=== PATIENT | male | born 1955 | race African-American/Black ===

== ENCOUNTER 2017-01-14 13:40 | Inpatient (IN) | payer BC ==
[2017-01-14 13:57] VITALS: BMI 26.6
--- NOTE | 2017-01-14 14:14 | PDOC ---
History of Present Illness - General History Source: Patient Exam Limitations: No Limitations - History of Present Illness Initial Comments: 01/14/17 16:45 Patient is a 61 year old male with a significant past medical history of HTN, Diverticulosis, GI Bleed,Anemia, Chronic low back pain,Diabetes Mellitus, who presents to the ED with complaints of chest tightness that began today at 1: 45pm. Patient reports being in post office when he suddenly felt chest tightness while reaching for his package. He reports experiencing SOB secondary to chest tightness. Patient states his last stress test was in 2007. He reports left arm pain but states it is because he received steroid shot 2 days ago. Patient reports experiencing right sided head pain behind his ear but is not sure if it is connected to his chest tightness. As per patient's , patient was on his way to PCP office when they stopped at the post office. Patient reports not taking medication this morning because he ran out of pills Denies Fevers, chills. Denies nausea, vomiting. Denies contact with sick individual, out of state travel. Denies any other symptoms. Allergies: Levofloxacin, Sulfur Social history: No smoking. No alcohol. No illicit drugs. Surgical history: Arthroscopy, rotator cuff surgery, colonoscopy 07/01/13 and 2 yrs ago PMD: Dr. dennis <Peter Dorsey - Last Filed: 01/14/17 16:45> <Elizabeth Prajapati - Last Filed: 01/14/17 18:17> - General Chief Complaint: Chest Pain Stated Complaint: CHEST PAIN Time Seen by Provider: 01/14/17 14:14 Past History <Peter Dorsey - Last Filed: 01/14/17 16:45> - Past Medical History Anemia: Yes (BLEEDING ULCER) Asthma: No Cancer: No Cardiac Disorders: No CVA: No COPD: No CHF: No Dementia: No Diabetes: Yes (2006) GI Disorders: Yes (DIVERTICULOSIS/BLEEDING ULCER 06/2013) Disorders: Yes (BPH) HTN: Yes Hypercholesterolemia: Yes Kidney Stones: Yes Liver Disease: No Seizures: No Thyroid Disease: No - Surgical History Abdominal Surgery: No Appendectomy: No Cardiac Surgery: No Cholecystectomy: No Lung Surgery: No Neurologic Surgery: No Orthopedic Surgery: Yes (RIGHT KNEE ARTHROSCOPY/RIGHT ROTATOR CUFF SURGERY) - Suicide/Smoking/Psychosocial Hx Smoking History: Never smoked Have you smoked in the past 12 months: No Hx Alcohol Use: No Drug/Substance Use Hx: No Substance Use Type: None Hx Substance Use Treatment: No <Elizabeth Prajapati - Last Filed: 01/14/17 18:17> - Past Medical History Allergies/Adverse Reactions: Allergies Allergy/AdvReac Type Severity Reaction Status Date / Time levofloxacin [From Levaquin] Allergy Severe SEVERE Verified 01/14/17 13:54 HEADACHE sulfur [From Sulfur-8] Allergy Severe Rash Verified 01/14/17 13:54 Home Medications: Ambulatory Orders Metoprolol Tartrate [Lopressor -] 50 mg PO DAILY 07/01/13 Glimepiride [Amaryl -] 4 mg PO BID 12/24/15 Linagliptin [Tradjenta] 5 mg PO DAILY 12/24/15 Metformin HCl 500 mg PO BID 12/24/15 Alfuzosin HCl [Uroxatral] 10 mg PO DAILY 01/14/17 Atorvastatin Ca [Lipitor] 40 mg PO HS 01/14/17 Carbidopa/Levodopa *Cr* 25/100 [Sinemet *Cr* 25/100 -] 1 combo PO TID 01/14/17 Pioglitazone HCl [Actos] 15 mg PO DAILY 01/14/17 Review of Systems - Review of Systems Able to Perform ROS?: Yes Comments:: 01/14/17 16:45 GENERAL/CONSTITUTIONAL: No fever or chills. No weakness. HEAD, EYES, EARS, NOSE AND THROAT: +Right sided head pain. No change in vision. No ear pain or discharge. No sore throat. CARDIOVASCULAR:+Chest pain. +SOB. RESPIRATORY: No cough, wheezing, or hemoptysis. GASTROINTESTINAL: No nausea, vomiting, diarrhea or constipation. GENITOURINARY: No dysuria, frequency, or change in urination. MUSCULOSKELETAL: No joint or muscle swelling or pain. No neck or back pain. SKIN: No rash NEUROLOGIC: No headache, vertigo, loss of consciousness, or change in strength/ sensation. ENDOCRINE: No increased thirst. No abnormal weight change. HEMATOLOGIC/LYMPHATIC: No anemia, easy bleeding, or history of blood clots. ALLERGIC/IMMUNOLOGIC: No hives or skin allergy. All Other Systems: Reviewed and Negative <Peter Dorsey - Last Filed: 01/14/17 16:45> *Physical Exam - Vital Signs Last Vital Signs Temp Pulse Resp BP Pulse Ox 97.8 F 106 H 16 124/69 100 01/14/17 13:54 01/14/17 15:35 01/14/17 15:35 01/14/17 15:35 01/14/17 15:35 - Physical Exam Comments: 01/14/17 16:45 GENERAL: +Slow speech. Awake, alert, and fully oriented, in no acute distress HEAD: No signs of trauma EYES: PERRLA, EOMI, sclera anicteric, conjunctiva clear ENT: Auricles normal inspection, hearing grossly normal, nares patent, oropharynx clear without exudates. Moist mucosa NECK: Normal ROM, supple, no lymphadenopathy, JVD, or masses LUNGS: Breath sounds equal, clear to auscultation bilaterally. No wheezes, and no crackles HEART: Regular rate and rhythm, normal S1 and S2, no murmurs, rubs or gallops ABDOMEN: Soft, nontender, normoactive bowel sounds. No guarding, no rebound. No masses EXTREMITIES: Normal range of motion, no edema. No clubbing or cyanosis. No cords, erythema, or tenderness NEUROLOGICAL: +5/5 strength in upper extremities bilaterally. +3./5 strength in left lower extremity. Cranial nerves II through XII grossly intact. Normal speech, SKIN: Warm, Dry, normal turgor, no rashes or lesions noted. <Peter Dorsey - Last Filed: 01/14/17 16:45> - Vital Signs Last Vital Signs Temp Pulse Resp BP Pulse Ox 97.8 F 113 H 19 147/79 99 01/14/17 13:54 01/14/17 13:54 01/14/17 13:54 01/14/17 13:54 01/14/17 13:54 <Elizabeth Prajapati - Last Filed: 01/14/17 18:17> Heart Score/ECG Review - History History: Moderately suspicious - Electrocardiogram EKG: Normal - Age Age: 45-65 - Risk Factors Risk Factors Heart Score: Yes Hx Hypercholesterolemia, Yes Hx Hypertension, Yes Hx Diabetes Based on the list above the patient has:: >/=3 risk factors or Hx atherosclerotic disease - Troponin Troponin: </= normal limit - Score Heart Score - Total: 4 <Elizabeth Prajapati - Last Filed: 01/14/17 18:17> ED Treatment Course - LABORATORY CBC & Chemistry Diagram: 01/14/17 14:54 01/14/17 14:54 - ADDITIONAL ORDERS Additional order review: Laboratory Results 01/14/17 14:54 Sodium 141 Potassium 4.5 Chloride 102 Carbon Dioxide 31 Anion Gap 8 BUN 16 D Creatinine 1.0 D Creat Clearance w eGFR > 60 Random Glucose 281 H D Calcium 9.2 Total Bilirubin 0.4 D AST 28 D ALT 96 H D Alkaline Phosphatase 131 H D Creatine Kinase 318 H Creatine Kinase Index 0.5 CK-MB (CK-2) 1.836 Troponin I 0.03 Total Protein 7.7 D Albumin 3.9 01/14/17 14:54 RBC 4.96 D MCV 88.7 MCHC 33.5 RDW 14.6 MPV 9.1 D Neutrophils % 79.9 D Lymphocytes % 12.5 D Monocytes % 7.3 Eosinophils % 0.0 D Basophils % 0.3 - Medications Given in the ED: ED Medications Discontinued Medications Generic Name Dose Route Start Last Admin Trade Name Freq PRN Reason Stop Dose Admin Aspirin 162 mg 01/14/17 14:51 01/14/17 14:54 Asa - PO 01/14/17 14:52 162 mg ONCE ONE Administration <Peter Dorsey - Last Filed: 01/14/17 16:45> - LABORATORY CBC & Chemistry Diagram: 01/14/17 14:54 01/14/17 14:54 <Elizabeth Prajapati - Last Filed: 01/14/17 18:17> Medical Decision Making - Medical Decision Making 01/14/17 18:11 Pt presents to the ED complaining of chest pain that began acutely today. + shortness of breath. Extensive cardiac history as described above. HEART score of 4. Will admit to medicine for observation for serial cardiac enzymes. 01/14/17 18:17 <Elizabeth Prajapait - Last Filed: 01/14/17 18:17> *DC/Admit/Observation/Transfer - Attestations Scribe Attestion: 01/14/17 16:47 Documentation prepared by Peter Dorsey, acting as medical art therapist for Elizabeth Prajapati MD, /DO. <Peter Dorsey - Last Filed: 01/14/17 16:45> - Discharge Dispostion Admit: Yes <Elizabeth Prajapati - Last Filed: 01/14/17 18:17> Diagnosis at time of Disposition: Chest pain Qualifiers: Chest pain type: other chest pain Qualified Code(s): R07.89 - Other chest pain - Discharge Dispostion Condition at time of disposition: Good - Referrals Referrals: Evelio Dennis MD [Primary Care Provider] -
[2017-01-14] MEDS ORDERED: ASPIRIN 81 MG CHEWABLE TABLETS PO ONE (14:51)
[2017-01-14] MEDS ORDERED: ASPIRIN 81 MG CHEWABLE TABLETS ONE (14:56)
[2017-01-14 15:38] LABS: ALBUMIN 3.9 g/dl (3.4-5.0); ANION GAP 8 (8-16); CALCIUM 9.2 mg/dL (8.5-10.1); CO2 31 mmol/L (21-32); GLUCOSE,RANDOM 281 mg/dL (74-106); SGOT/AST 28 U/L (15-37); SGPT/ALT 96 U/L (12-78)
[2017-01-14 15:41] LABS: ALK PHOS 131 U/L (45-117); BILIRUBIN,TOTAL 0.4 mg/dL (0.2-1.0); CPK 318 IU/L (39-308); TOT PROT 7.7 g/dl (6.4-8.2); TROPONIN I 0.03 ng/ml (0.00-0.05)
[2017-01-14 15:49] LABS: BASOPHIL 0.3 % (0-2.0); MCH 29.7 pg (25.7-33.7); MCHC 33.5 g/dl (32.0-35.9); MEAN CELL VOLUME 88.7 fl (80-96); MEAN PLT VOLUME 9.1 fl (7.5-11.1); NEUTROPHILS 79.9 % (42.8-82.8); PLATELET COUNT 172 K/MM3 (134-434); RDW 14.6 % (11.9-15.9); WHITE BLOOD COUNT 8.4 K/mm3 (4.0-10.0)
--- NOTE | 2017-01-14 19:09 | HP ---
CHIEF COMPLAINT: Chest pain PCP: Dr. Dennis HISTORY OF PRESENT ILLNESS: 61 year-old male with a PMH significant for HTN, HLD, Parkinson's disease, NIDDM , diverticulosis, h/o lower GI bleed, anemia, renal calculi, and spinal stenosis s/p L3-L4, L4-L5 laminectomy. Presents with a complaint of chest tightness with associated SOB. Patient was in post office and lifted a heavy box from one counter to another, a distance of a few feet. He felt mid sternal chest pressure and became SOB. The symptoms lasted about two hours and have not recurred. Patient had one previous episode of chest pressure and SOB at the end of November after walking a distance of about a quarter mile. The patient's last stress test was in 2007 and was normal. He has not had a cardiac workup since then. Patient denies palpitations, PND, orthopnea, near syncope, lower extremity edema. He denies fever, sweats, chills. ER course was notable for: (1) First troponin negative (2) CXR unremarkable Recent Travel: No PAST MEDICAL HISTORY: Hypertension Hyperlipidemia Parkinson's Disease NIDDM Diverticulosis h/o GI bleed (06/2013) Anemia Renal calculi Spinal stenosis PAST SURGICAL HISTORY: L3-L4, L4-L5 laminectomy (12/2015) Social History: Smoking: no Alcohol: no Drugs: no Family History: Mother ESRD; father age 52 of massive MT; uncle from complications of CABG Allergies levofloxacin [From Levaquin] Allergy (Severe, Verified 01/14/17 13:54) SEVERE HEADACHE sulfur [From Sulfur-8] Allergy (Severe, Verified 01/14/17 13:54) Rash HOME MEDICATIONS: Home Medications Medication Instructions Recorded Metoprolol Tartrate [Lopressor -] 50 mg PO DAILY 07/01/13 Glimepiride [Amaryl -] 4 mg PO BID 12/24/15 Linagliptin [Tradjenta] 5 mg PO DAILY 12/24/15 Metformin HCl 500 mg PO BID 12/24/15 Alfuzosin HCl [Uroxatral] 10 mg PO DAILY 01/14/17 Atorvastatin Ca [Lipitor] 40 mg PO HS 01/14/17 Carbidopa/Levodopa *Cr* 25/100 1 combo PO TID 01/14/17 [Sinemet *Cr* 25/100 -] Pioglitazone HCl [Actos] 15 mg PO DAILY 01/14/17 REVIEW OF SYSTEMS CONSTITUTIONAL: Absent: fever, chills, diaphoresis, generalized weakness, malaise, loss of appetite, weight change HEENT: Absent: rhinorrhea, nasal congestion, throat pain, throat swelling, difficulty swallowing, mouth swelling, ear pain, eye pain, visual changes CARDIOVASCULAR: Present: mid sternal chest pressure with SOB Absent: syncope, palpitations, irregular heart rate, lightheadedness, peripheral edema RESPIRATORY: Absent: cough, shortness of breath, dyspnea with exertion, orthopnea, wheezing, stridor, hemoptysis GASTROINTESTINAL: Absent: abdominal pain, abdominal distension, nausea, vomiting, diarrhea, constipation, melena, hematochezia GENITOURINARY: Absent: dysuria, frequency, urgency, hesitancy, hematuria, flank pain, genital pain MUSCULOSKELETAL: Absent: myalgia, arthralgia, joint swelling, back pain, neck pain SKIN: Absent: rash, itching, pallor HEMATOLOGIC/IMMUNOLOGIC: Absent: easy bleeding, easy bruising, lymphadenopathy, frequent infections ENDOCRINE: Absent: unexplained weight gain, unexplained weight loss, heat intolerance, cold intolerance NEUROLOGIC: Absent: headache, focal weakness or paresthesias, dizziness, unsteady gait, seizure, mental status changes, bladder or bowel incontinence PSYCHIATRIC: Absent: anxiety, depression, suicidal or homicidal ideation, hallucinations. PHYSICAL EXAMINATION Vital Signs - 24 hr 01/14/17 01/14/17 01/14/17 13:54 14:46 15:35 Temperature 97.8 F Pulse Rate 113 H 74 Pulse Rate [ 106 H Left Apical] Respiratory 19 16 Rate Blood Pressure 147/79 Blood Pressure 124/69 [Left Arm] O2 Sat by Pulse 99 98 100 Oximetry (%) 01/14/17 17:23 Temperature 98.4 F Pulse Rate Pulse Rate [ 103 H Left Apical] Respiratory 16 Rate Blood Pressure Blood Pressure 123/67 [Left Arm] O2 Sat by Pulse 96 Oximetry (%) GENERAL: Awake, alert, and fully oriented, in no acute distress. HEAD: Normal with no signs of trauma. EYES: Pupils equal, round and reactive to light, extraocular movements intact, sclera anicteric, conjunctiva clear. No lid lag. EARS, NOSE, THROAT: Ears normal, nares patent, oropharynx clear without exudates. Moist mucous membranes. NECK: Normal range of motion, supple without lymphadenopathy, JVD, or masses. LUNGS: Breath sounds equal, clear to auscultation bilaterally. No wheezes, and no crackles. No accessory muscle use. HEART: Regular rate and rhythm, normal S1 and S2, slight murmur best heard over aortic area ABDOMEN: Soft, nontender, not distended, normoactive bowel sounds, no guarding, no rebound, no masses. No hepatomegaly or splenomegaly. MUSCULOSKELETAL: Normal range of motion at all joints. No bony deformities or tenderness. No CVA tenderness. UPPER EXTREMITIES: 2+ pulses, warm, well-perfused. No cyanosis. No clubbing. No peripheral edema. LOWER EXTREMITIES: 2+ pulses, warm, well-perfused. No calf tenderness. No peripheral edema. NEUROLOGICAL: Cranial nerves II-XII intact. Normal speech. Normal gait. PSYCHIATRIC: Cooperative. Good eye contact. Appropriate mood and affect. SKIN: Warm, dry, normal turgor Laboratory Results - last 24 hr 01/14/17 01/14/17 14:54 14:54 WBC 8.4 D RBC 4.96 D Hgb 14.8 D Hct 44.0 D MCV 88.7 MCH 29.7 MCHC 33.5 RDW 14.6 Plt Count 172 D MPV 9.1 D Neutrophils % 79.9 D Lymphocytes % 12.5 D Monocytes % 7.3 Eosinophils % 0.0 D Basophils % 0.3 Sodium 141 Potassium 4.5 Chloride 102 Carbon Dioxide 31 Anion Gap 8 BUN 16 D Creatinine 1.0 D Creat Clearance w eGFR > 60 Random Glucose 281 H D Calcium 9.2 Total Bilirubin 0.4 D AST 28 D ALT 96 H D Alkaline Phosphatase 131 H D Creatine Kinase 318 H Creatine Kinase Index 0.5 CK-MB (CK-2) 1.836 Troponin I 0.03 Total Protein 7.7 D Albumin 3.9 ASSESSMENT/PLAN 61 year-old male with a PMH significant for HTN, Parkinson's disease, NIDDM, h/ o GI bleed, renal calculi, anemia, and spinal stenosis s/p L3-L4, L4-L5 laminectomy (12/2015). Placed on observation for chest pain. Chest pain --r/o ACS: first troponin negative, two pending; CXR unremarkable; ECG not suggestive of acute ischemic event; echo and EST ordered; cardiology consult requested; telemetry monitoring; continue ASA, metoprolol --r/o PE: Wells score 1.5, low risk; very low suspicion for PE, no further workup for now Hypertension --continue metoprolol Parkinson's Disease --continue carbidopa/levodopa NIDDM --Novolog sliding scale coverage h/o lower GI bleed Diverticulosis --will start protonix since on ASA Renal calculi --no acute issues Anemia --h/h stable Lumbar spinal stenosis s/p laminectomy --no acute issues FEN Fluids: PO intake adequate Electrolytes: replete as indicated Nutrition: low sodium diabetic DVT prophylaxis: subq heparin, oob, ambulation Dispo: continues to require observation. Full code. Visit type - Emergency Visit Emergency Visit: Yes ED Registration Date: 01/14/17 Care time: The patient presented to the Emergency Department on the above date and was hospitalized for further evaluation of their emergent condition. - New Patient This patient is new to me today: Yes Date on this admission: 01/14/17 - Critical Care Critical Care patient: No
[2017-01-14] MEDS: PANTOPRAZOLE 40 MG TABLET (FP) PO SCH (21:13)
[2017-01-14] MEDS: ATORVASTATIN CA 40 MG TABLET (FP) PO SCH (21:13)
[2017-01-14] MEDS: INSULIN SLIDING SCALE (NOVOLOG) 1 VIAL SQ SCH (21:22)
--- NOTE | 2017-01-15 00:37 | HOSP ---
Subjective - Review of Symptoms Events since last encounter: Called by RN and notified of troponin of 0.51. Pulmonary: No: Dyspnea Cardiovascular: No: Chest Pain Physical Examination Vital Signs: Vital Signs Temperature 98.8 F 01/14/17 20:06 Pulse Rate 78 01/14/17 20:06 Respiratory Rate 16 01/14/17 20:06 Blood Pressure 140/88 01/14/17 20:06 O2 Sat by Pulse Oximetry (%) 96 01/14/17 20:06 Constitutional: Yes: No Distress, Calm Cardiovascular: Yes: Regular Rate and Rhythm. No: JVD, Gallop, Murmur Respiratory: Yes: Regular, CTA Bilaterally Gastrointestinal: Yes: Normal Bowel Sounds ...Rectal Exam: Yes: Guaiac Negative, Sphincter Tone Normal Labs: CBC, BMP 01/14/17 14:54 01/14/17 14:54 Hospitalist Encounter Assessment: A: 61-year-old man with history of IDDM, hypertension, lower GI bleed now with new positive troponin. P: I'll perform guaiac testing on this patient. If negative I will initiate heparin drip. I will collect a stat EKG. I will reevaluate the patient after all testing was completed. Guaiac (-). Given benefits of heperin vs risks of GI bleed, I will start the patient on heperin gtt. EKG- No significant change from previous EKG. Patient remains chest pain free at this time. I will continue to monitor.
[2017-01-15] MEDS ORDERED: HEPARIN NA (PORCINE) 5,000 UNITS/ML 1ML VIAL IVPUSH PRN ×2 (01:30)
[2017-01-15] MEDS: HEPARIN - 25,000 UNIT in SODIUM CHLORIDE 495 ML IV SCH ×3 (03:35→20:20)
[2017-01-15] MEDS ORDERED: CLOPIDOGREL BISULFATE 300 MG TABLET PO ONE ×2 (04:07)
[2017-01-15] MEDS: INSULIN SLIDING SCALE (NOVOLOG) 1 VIAL SQ SCH ×4 (06:23→21:47)
[2017-01-15 07:22] LABS: BASOPHIL 0.5 % (0-2.0); EOSINOPHIL 0.3 % (0-4.5); MCH 29.5 pg (25.7-33.7); MCHC 33.3 g/dl (32.0-35.9); MEAN CELL VOLUME 88.8 fl (80-96); MEAN PLT VOLUME 8.8 fl (7.5-11.1); NEUTROPHILS 70.3 % (42.8-82.8); PLATELET COUNT 167 K/MM3 (134-434); RDW 14.5 % (11.9-15.9); WHITE BLOOD COUNT 8.2 K/mm3 (4.0-10.0)
[2017-01-15 07:27] LABS: ALBUMIN 3.6 g/dl (3.4-5.0); ANION GAP 6 (8-16); CALCIUM 8.6 mg/dL (8.5-10.1); CO2 29 mmol/L (21-32); GLUCOSE,RANDOM 218 mg/dL (74-106)
[2017-01-15 07:40] LABS: ALK PHOS 121 U/L (45-117); BILIRUBIN,TOTAL 0.7 mg/dL (0.2-1.0); CREATININE 0.8 mg/dL (0.7-1.3); SGOT/AST 23 U/L (15-37); SGPT/ALT 41 U/L (12-78); THYROID STIMULATING HORMONE 1.59 uIU/ml (0.358-3.74)
[2017-01-15] MEDS: ASPIRIN COATED 81 MG TABLET.EC PO SCH (09:12)
[2017-01-15] MEDS: TAMSULOSIN HCL 0.4 MG CAP.ER.24H (FP) PO SCH (09:12)
[2017-01-15] MEDS: METOPROLOL TARTRATE 50 MG TABLET (FP) PO SCH (09:12)
[2017-01-15] MEDS: PANTOPRAZOLE 40 MG TABLET (FP) PO SCH (09:12)
[2017-01-15 09:58] LABS: CPK 230 IU/L (39-308)
[2017-01-15] MEDS ORDERED: PATIENT'S OWN MEDICATION (NON-FORMULARY) (Alfuzosin Hcl [Uroxatral] 10 MG) PO SCH (10:00)
[2017-01-15 10:31] LABS: TROPONIN I 0.73 ng/ml (0.00-0.05)
--- NOTE | 2017-01-15 13:03 | PN ---
Physical Exam: SUBJECTIVE: Patient seen and examined at bedside. States he feels better, chest pain has not recurred. and sister present. 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 Answered all questions. OBJECTIVE: Vital Signs Period Temp Pulse Resp BP Sys/Sol Pulse Ox Last 24 Hr 97.8 F-98.8 F 73-113 16-19 123-147/67-88 96-100 GENERAL: The patient is awake, alert, and fully oriented, in no acute distress. LUNGS: Breath sounds equal, clear to auscultation bilaterally, no wheezes, no crackles, no accessory muscle use. HEART: Regular rate and rhythm, S1, S2 without murmur, rub or gallop. ABDOMEN: Soft, nontender, nondistended, normoactive bowel sounds, no guarding, no rebound EXTREMITIES: 2+ pulses, warm, well-perfused, no edema. NEUROLOGICAL: Cranial nerves II through XII grossly intact. Normal speech, gait not observed. Laboratory Results - last 24 hr 01/14/17 01/14/17 01/14/17 14:54 14:54 21:19 WBC 8.4 D RBC 4.96 D Hgb 14.8 D Hct 44.0 D MCV 88.7 MCH 29.7 MCHC 33.5 RDW 14.6 Plt Count 172 D MPV 9.1 D Neutrophils % 79.9 D Lymphocytes % 12.5 D Monocytes % 7.3 Eosinophils % 0.0 D Basophils % 0.3 PTT (Actin FS) Sodium 141 Potassium 4.5 Chloride 102 Carbon Dioxide 31 Anion Gap 8 BUN 16 D Creatinine 1.0 D Creat Clearance w eGFR > 60 POC Glucometer 189 Random Glucose 281 H D Hemoglobin A1c % Calcium 9.2 Magnesium Total Bilirubin 0.4 D AST 28 D ALT 96 H D Alkaline Phosphatase 131 H D Creatine Kinase 318 H Creatine Kinase Index 0.5 CK-MB (CK-2) 1.836 Troponin I 0.03 Total Protein 7.7 D Albumin 3.9 TSH Stool Occult Blood 01/14/17 01/15/17 01/15/17 21:45 00:25 02:15 WBC RBC Hgb Hct MCV MCH MCHC RDW Plt Count MPV Neutrophils % Lymphocytes % Monocytes % Eosinophils % Basophils % PTT (Actin FS) Sodium Potassium Chloride Carbon Dioxide Anion Gap BUN Creatinine Creat Clearance w eGFR POC Glucometer Random Glucose Hemoglobin A1c % Calcium Magnesium Total Bilirubin AST ALT Alkaline Phosphatase Creatine Kinase Creatine Kinase Index CK-MB (CK-2) Troponin I 0.51 H D 0.81 H* D Total Protein Albumin TSH Stool Occult Blood Negative 01/15/17 01/15/17 01/15/17 02:57 05:05 05:05 WBC 8.2 RBC 4.74 Hgb 14.0 Hct 42.1 MCV 88.8 MCH 29.5 MCHC 33.3 RDW 14.5 Plt Count 167 MPV 8.8 Neutrophils % 70.3 Lymphocytes % 22.3 D Monocytes % 6.6 Eosinophils % 0.3 D Basophils % 0.5 PTT (Actin FS) Sodium 138 Potassium 4.2 Chloride 103 Carbon Dioxide 29 Anion Gap 6 L BUN 16 Creatinine 0.8 Creat Clearance w eGFR > 60 POC Glucometer 162 Random Glucose 218 H D Hemoglobin A1c % Calcium 8.6 Magnesium 2.0 D Total Bilirubin 0.7 D AST 23 ALT 41 D Alkaline Phosphatase 121 H Creatine Kinase 230 Creatine Kinase Index 1.4 CK-MB (CK-2) 3.340 Troponin I 0.73 H* Total Protein 7.0 Albumin 3.6 TSH 1.59 Stool Occult Blood 01/15/17 01/15/17 01/15/17 05:05 05:05 06:05 WBC RBC Hgb Hct MCV MCH MCHC RDW Plt Count MPV Neutrophils % Lymphocytes % Monocytes % Eosinophils % Basophils % PTT (Actin FS) Sodium Potassium Chloride Carbon Dioxide Anion Gap BUN Creatinine Creat Clearance w eGFR POC Glucometer 211 Random Glucose Hemoglobin A1c % 7.0 H Calcium Magnesium Total Bilirubin AST ALT Alkaline Phosphatase Creatine Kinase Cancelled Creatine Kinase Index CK-MB (CK-2) Troponin I Cancelled Total Protein Albumin TSH Stool Occult Blood 01/15/17 01/15/17 09:40 11:17 WBC RBC Hgb Hct MCV MCH MCHC RDW Plt Count MPV Neutrophils % Lymphocytes % Monocytes % Eosinophils % Basophils % PTT (Actin FS) 39.0 H Sodium Potassium Chloride Carbon Dioxide Anion Gap BUN Creatinine Creat Clearance w eGFR POC Glucometer 228 Random Glucose Hemoglobin A1c % Calcium Magnesium Total Bilirubin AST ALT Alkaline Phosphatase Creatine Kinase Creatine Kinase Index CK-MB (CK-2) Troponin I Total Protein Albumin TSH Stool Occult Blood Active Medications Generic Name Dose Route Start Last Admin Trade Name Freq PRN Reason Stop Dose Admin Aspirin 81 mg 01/15/17 10:00 01/15/17 09:12 Ecotrin - PO 81 mg DAILY LYNDON Administration Atorvastatin Calcium 40 mg 01/14/17 22:00 01/14/17 21:13 Lipitor - PO 40 mg HS LYNDON Administration Carbidopa/Levodopa 1 combo 01/14/17 22:00 01/15/17 06:24 Sinemet *Cr* 25/100 - PO 1 combo TID LYNDON Administration Heparin Sodium (Porcine) 1,000 unit 01/15/17 01:30 Heparin - IVPUSH PRN PRN Heparin Heparin Sodium (Porcine) 5,000 unit 01/15/17 01:30 01/15/17 11:14 Heparin - IVPUSH 5,000 unit PRN PRN Administration Heparin Heparin Sodium (Porcine) 25, 500 mls @ 20 mls/hr 01/15/17 01:30 01/15/17 11: 14 000 unit/ Sodium Chloride IV 1,150 unit/hr TITR LYNDON 23 mls/hr Protocol Administration 1,000 UNIT/HR Insulin Aspart 1 vial 01/14/17 22:00 01/15/17 11:18 Novolog Vial Sliding Scale - SQ 4 units ACHS LYNDON Administration Protocol Metoprolol Tartrate 50 mg 01/15/17 10:00 01/15/17 09:12 Lopressor - PO 50 mg DAILY LYNDON Administration Pantoprazole Sodium 40 mg 01/14/17 20:15 01/15/17 09:12 Protonix - PO 40 mg DAILY LYNDON Administration Tamsulosin HCl 0.4 mg 01/15/17 08:30 01/15/17 09:12 Flomax - PO 0.4 mg DAILY@0830 LYNDON Administration ASSESSMENT/PLAN 61 year-old male with a PMH significant for HTN, Parkinson's disease, NIDDM, h/ o GI bleed, renal calculi, anemia, and spinal stenosis s/p L3-L4, L4-L5 laminectomy (12/2015). Placed on observation for chest pain. NSTEMI --Troponins 0.03-->0.51-->0.81-->0.73 --serial ECGs without ischemic changes --ASA, Plavix given overnight; started on heparin drip --echo pending --continue ASA, Plavix, metoprolol, atorvastatin Hypertension --continue metoprolol Parkinson's Disease --continue carbidopa/levodopa NIDDM --Novolog sliding scale coverage h/o lower GI bleed Diverticulosis --continue protonix Renal calculi --no acute issues Anemia --h/h stable Lumbar spinal stenosis s/p laminectomy --no acute issues FEN Fluids: PO intake adequate Electrolytes: replete as indicated Nutrition: low sodium diabetic DVT prophylaxis: subq heparin, oob, ambulation Dispo: continues to require inpatient care. Full code. Visit type - Emergency Visit Emergency Visit: Yes ED Registration Date: 01/14/17 Care time: The patient presented to the Emergency Department on the above date and was hospitalized for further evaluation of their emergent condition. - New Patient This patient is new to me today: No - Critical Care Critical Care patient: No
--- NOTE | 2017-01-15 16:57 | CON.CARD ---
Consult Consult Specialty:: Cardiology Referred by:: Ms. Jerad NP - History of Present Illness Chief Complaint: Chest tightness with evidence of NSTEMI. History of Present Illness: 61 year-old man with a PMHx of HTN, NIDDM, HLD, Parkinson's disease, diverticulosis, lower GI bleed, anemia, renal calculi, and spinal stenosis s/p L3-L4, L4-L5 laminectomy admitted 01/15/2017 with chest tightness with associated SOB. Patient developed chest tightness with SOB after lifted a heavy box from one counter to another. His symptoms lasted about two hours resolved after receiving Aspirin. He had similar episode of chest pressure and SOB at the end of November 2016 after walking a distance of about a quarter mile. He did not seek medical attention at that time. He was found to have elevated troponin after admission. ECG did not show acute ST-T changes. He has been stable since admission without recurrent chest discomfort. - History Source History Provided By: Patient Limitations to Obtaining History: No Limitations - Past Medical History Cardio/Vascular: Yes: HTN. No: AFIB, Aneurysm, Aortic Insufficiency, Aortic Stenosis, CAD, CHF, Deep Vein Thrombosis, Hyperlipdemia, MA, Mitral Insufficiency, Mitral Stenosis, Murmur, Pulmonary Hypertension, Other Gastrointestinal: Yes: Diverticulosis, GI Bleed. No: Cancer, Constipation, Crohn's Disease, Diverticulitis, Esophageal Varices, Gastritis, GERD, Hemorrhoids, Hiatal Hernia, Inflamatory Bowel Disease, Irritable Bowel Disease, Pancreatitis, Peptic Ulcer Disease, Ulcerative Colitis, Other Renal/: Yes: Renal Calculi. No: Renal Failure, Renal Inusuff, BPH, Cancer, Hematuria, Hemodialysis, Neurogenic Bladder, UTI, Other Musculoskeletal: Yes: Chronic low back pain. No: Bursitis, Hemiparesis, Hemiplegia, Osteoarthritis, Paraplegia, Other Endocrine: Yes: Diabetes Mellitus. No: Torres's Disease, Ralph's Disease, Diabetes Insipidus, Hyperparathyroidism, Hyperthyroidism, Hypothyroidism, Osteopenia, SIADH, Other - Past Surgical History Past Surgical History: Yes: Arthrosocopy - Alcohol/Substance Use Hx Alcohol Use: No History of Substance Use: reports: None - Smoking History Smoking history: Never smoked Have you smoked in the past 12 months: No - Social History Usual Living Arrangement: With Spouse History of Recent Travel: No Home Medications - Allergies Allergies/Adverse Reactions: Allergies Allergy/AdvReac Type Severity Reaction Status Date / Time levofloxacin [From Levaquin] Allergy Severe SEVERE Verified 01/14/17 13:54 HEADACHE sulfur [From Sulfur-8] Allergy Severe Rash Verified 01/14/17 13:54 - Home Medications Home Medications: Ambulatory Orders Metoprolol Tartrate [Lopressor -] 50 mg PO DAILY 07/01/13 Glimepiride [Amaryl -] 4 mg PO BID 12/24/15 Linagliptin [Tradjenta] 5 mg PO DAILY 12/24/15 Metformin HCl 500 mg PO BID 12/24/15 Alfuzosin HCl [Uroxatral] 10 mg PO DAILY 01/14/17 Atorvastatin Ca [Lipitor] 40 mg PO HS 01/14/17 Carbidopa/Levodopa *Cr* 25/100 [Sinemet *Cr* 25/100 -] 1 combo PO TID 01/14/17 Pioglitazone HCl [Actos] 15 mg PO DAILY 01/14/17 Review of Systems - Review of Systems Constitutional: reports: No Symptoms Eyes: reports: No Symptoms HENT: reports: No Symptoms Neck: reports: No Symptoms Cardiovascular: reports: Chest Pain, Shortness of Breath Respiratory: reports: Exercise Intolerance, SOB Gastrointestinal: reports: No Symptoms Genitourinary: reports: No Symptoms Musculoskeletal: reports: Back Pain Integumentary: reports: No Symptoms Neurological: reports: Other (Parkinson's disease.) Hematology/Lymphatic: reports: No Symptoms Psychiatric: reports: No Symptoms - Risk Factors Known Risk Factors: Yes: Diabetes Mellitus, Hypercholesterolemia, Hypertension Vital Signs: Vital Signs Temperature 98.8 F 01/15/17 14:00 Pulse Rate 80 01/15/17 14:00 Respiratory Rate 20 01/15/17 14:00 Blood Pressure 114/67 01/15/17 14:00 O2 Sat by Pulse Oximetry (%) 98 01/15/17 09:00 Constitutional: Yes: Well Nourished, No Distress, Calm Eyes: Yes: WNL, Conjunctiva Clear, EOM Intact, PERRL, Sclera Icterus HENT: Yes: Atraumatic, Normocephalic Neck: Yes: Supple, Trachea Midline Respiratory: Yes: Regular, CTA Bilaterally Gastrointestinal: Yes: Normal Bowel Sounds, Soft, Abdomen, Obese Cardiovascular: Yes: Regular Rate and Rhythm JVD: No Carotid Bruit: No PMI: Non-Displaced Heart Sounds: Yes: S1, S2 Musculoskeletal: Yes: Back Pain Edema: No Peripheral Pulses WNL: Yes Integumentary: Yes: WNL Neurological: Yes: WNL, Alert, Oriented ...Motor Strength: WNL - Other Data Labs, Other Data: CBC, BMP 01/15/17 05:05 01/15/17 05:05 Troponin, BNP 01/14/17 01/15/17 01/15/17 21:45 02:15 05:05 Troponin I 0.51 H D 0.81 H* D 0.73 H* 01/15/17 01/15/17 05:05 13:15 Troponin I Cancelled 0.46 H D Troponin, BNP 01/14/17 01/15/17 01/15/17 21:45 02:15 05:05 Troponin I 0.51 H D 0.81 H* D 0.73 H* 01/15/17 01/15/17 05:05 13:15 Troponin I Cancelled 0.46 H D Normal sinus rhythm. No ST-T abnormalities. Imaging - Results Chest X-ray: Image Reviewed EKG: Image Reviewed (Normal sinus rhythm. No ST-T abnormalities.) Assessment/Plan 61 year-old man with a PMHx of HTN, NIDDM, HLD, Parkinson's disease, diverticulosis, lower GI bleed, anemia, renal calculi, and spinal stenosis s/p L3-L4, L4-L5 laminectomy admitted 01/15/2017 with chest tightness with associated SOB. He was found to have elevated troponin after admission. ECG did not show acute ST-T changes. He has been stable since admission without recurrent chest discomfort. NSTEMI: The patient has multiple risk factors of CAD admitted with atypical angina with evidence of NSTEMI. He has been stable without recurrent angina. Troponin is trending down now. Cardiac cath with possible PCI will be scheduled for 01/18/2017 at [facility]. Continue IV Heparin to keep aPTT at 50-70. Continue aspirin, metoprolol and atorvastatin. We will follow the patient with you.
[2017-01-15] MEDS: ATORVASTATIN CA 40 MG TABLET (FP) PO SCH (21:46)
[2017-01-16] MEDS: INSULIN SLIDING SCALE (NOVOLOG) 1 VIAL SQ SCH ×4 (06:51→22:18)
[2017-01-16] MEDS: HEPARIN - 25,000 UNIT in SODIUM CHLORIDE 495 ML IV SCH (06:52)
--- NOTE | 2017-01-16 07:50 | PN ---
Physical Exam: SUBJECTIVE: Patient seen and examined. Episode of chest pressure at 4:00am. Given sublinqual nitro with relief after about 15 minutes. Telemetry unremarkable at that time. OBJECTIVE: Vital Signs Period Temp Pulse Resp BP Sys/Sol Pulse Ox Last 24 Hr 98 F-98.8 F 70-85 18-20 114-140/67-86 96-98 GENERAL: The patient is awake, alert, and fully oriented, in no acute distress. LUNGS: Breath sounds equal, clear to auscultation bilaterally, no wheezes, no crackles, no accessory muscle use. HEART: Regular rate and rhythm, S1, S2 without murmur, rub or gallop. ABDOMEN: Soft, nontender, nondistended, normoactive bowel sounds, no guarding, no rebound EXTREMITIES: 2+ pulses, warm, well-perfused, no edema. NEUROLOGICAL: Cranial nerves II through XII grossly intact. Normal speech, gait not observed. Laboratory Results - last 24 hr 01/15/17 01/15/17 01/15/17 05:05 05:05 05:05 PTT (Actin FS) Sodium 138 Potassium 4.2 Chloride 103 Carbon Dioxide 29 Anion Gap 6 L BUN 16 Creatinine 0.8 Creat Clearance w eGFR > 60 POC Glucometer Random Glucose 218 H D Hemoglobin A1c % 7.0 H Calcium 8.6 Magnesium 2.0 D Total Bilirubin 0.7 D AST 23 ALT 41 D Alkaline Phosphatase 121 H Creatine Kinase 230 Cancelled Creatine Kinase Index 1.4 CK-MB (CK-2) 3.340 Troponin I 0.73 H* Cancelled Total Protein 7.0 Albumin 3.6 TSH 1.59 01/15/17 01/15/17 01/15/17 09:40 11:17 13:15 PTT (Actin FS) 39.0 H Sodium Potassium Chloride Carbon Dioxide Anion Gap BUN Creatinine Creat Clearance w eGFR POC Glucometer 228 Random Glucose Hemoglobin A1c % Calcium Magnesium Total Bilirubin AST ALT Alkaline Phosphatase Creatine Kinase Creatine Kinase Index CK-MB (CK-2) Troponin I 0.46 H D Total Protein Albumin TSH 01/15/17 01/15/17 01/15/17 16:46 17:03 19:00 PTT (Actin FS) 194.4 H D 129.6 H D Sodium Potassium Chloride Carbon Dioxide Anion Gap BUN Creatinine Creat Clearance w eGFR POC Glucometer 165 Random Glucose Hemoglobin A1c % Calcium Magnesium Total Bilirubin AST ALT Alkaline Phosphatase Creatine Kinase Creatine Kinase Index CK-MB (CK-2) Troponin I Total Protein Albumin TSH 01/15/17 01/16/17 01/16/17 21:45 04:00 06:49 PTT (Actin FS) 174.6 H D Sodium Potassium Chloride Carbon Dioxide Anion Gap BUN Creatinine Creat Clearance w eGFR POC Glucometer 192 134 Random Glucose Hemoglobin A1c % Calcium Magnesium Total Bilirubin AST ALT Alkaline Phosphatase Creatine Kinase Creatine Kinase Index CK-MB (CK-2) Troponin I Total Protein Albumin TSH Active Medications Generic Name Dose Route Start Last Admin Trade Name Freq PRN Reason Stop Dose Admin Aspirin 81 mg 01/15/17 10:00 01/15/17 09:12 Ecotrin - PO 81 mg DAILY [facility] Administration Atorvastatin Calcium 40 mg 01/14/17 22:00 01/15/17 21:46 Lipitor - PO 40 mg HS [facility] Administration Carbidopa/Levodopa 1 combo 01/14/17 22:00 01/16/17 06:51 Sinemet *Cr* 25/100 - PO 1 combo TID [facility] Administration Clopidogrel Bisulfate 75 mg 01/16/17 10:00 Plavix - PO DAILY [facility] Heparin Sodium (Porcine) 1,000 unit 01/15/17 01:30 Heparin - IVPUSH PRN PRN Heparin Heparin Sodium (Porcine) 5,000 unit 01/15/17 01:30 01/15/17 11:14 Heparin - IVPUSH 5,000 unit PRN PRN Administration Heparin Heparin Sodium (Porcine) 25, 500 mls @ 20 mls/hr 01/15/17 01:30 01/16/17 06: 52 000 unit/ Sodium Chloride IV 700 unit/hr TITR [facility] 14 mls/hr Protocol Administration 1,000 UNIT/HR Insulin Aspart 1 vial 01/14/17 22:00 01/16/17 06:51 Novolog Vial Sliding Scale - SQ Not Given ACHS [facility] Protocol Metoprolol Tartrate 50 mg 01/15/17 10:00 01/15/17 09:12 Lopressor - PO 50 mg DAILY [facility] Administration Pantoprazole Sodium 40 mg 01/14/17 20:15 01/15/17 09:12 Protonix - PO 40 mg DAILY [facility] Administration Tamsulosin HCl 0.4 mg 01/15/17 08:30 01/15/17 09:12 Flomax - PO 0.4 mg DAILY@0830 [facility] Administration ASSESSMENT/PLAN 61 year-old male with a PMH significant for HTN, Parkinson's disease, NIDDM, h/ o GI bleed, renal calculi, anemia, and spinal stenosis s/p L3-L4, L4-L5 laminectomy (12/2015). Placed on observation for chest pain. NSTEMI Unstable angina --Troponins 0.03-->0.51-->0.81-->0.73 --episode of chest pain at rest last night relieved with nitro SL --tachycardic to 120s, increase metoprolol to 75mg BID --continue ASA, Plavix, atorvastatin, heparin drip, nitro PRN --transfer tomorrow morning to [facility] for cardiac cath Hypertension --continue metoprolol Parkinson's Disease --continue carbidopa/levodopa NIDDM --Novolog sliding scale coverage h/o lower GI bleed Diverticulosis --continue protonix Renal calculi --no acute issues Anemia --h/h stable Lumbar spinal stenosis s/p laminectomy --no acute issues FEN Fluids: PO intake adequate Electrolytes: replete as indicated Nutrition: low sodium diabetic DVT prophylaxis: heparin drip Dispo: transfer to [facility] tomorrow for cath. Full code. Visit type - Emergency Visit Emergency Visit: Yes ED Registration Date: 01/14/17 Care time: The patient presented to the Emergency Department on the above date and was hospitalized for further evaluation of their emergent condition. - New Patient This patient is new to me today: No - Critical Care Critical Care patient: No
--- NOTE | 2017-01-16 08:35 | EKG ---
Test Reason : Blood Pressure : / mmHG Vent. Rate : 114 BPM Atrial Rate : 114 BPM P-R Int : 150 ms QRS Dur : 084 ms QT Int : 302 ms P-R-T Axes : 073 064 055 degrees QTc Int : 416 ms SINUS TACHYCARDIA NONSPECIFIC ST AND T WAVE ABNORMALITY ABNORMAL ECG WHEN COMPARED WITH ECG OF 06-JUL-2013 11:27, NO SIGNIFICANT CHANGE WAS FOUND Confirmed by RASHAD KOHLER MD ([id number]) on 01/16/2017 8:34:52 AM Referred By: Confirmed By:RASHAD KOHLER MD
--- NOTE | 2017-01-16 08:41 | EKG ---
Test Reason : Blood Pressure : / mmHG Vent. Rate : 085 BPM Atrial Rate : 085 BPM P-R Int : 152 ms QRS Dur : 088 ms QT Int : 336 ms P-R-T Axes : 074 057 054 degrees QTc Int : 399 ms NORMAL SINUS RHYTHM WITH SINUS ARRHYTHMIA NORMAL ECG WHEN COMPARED WITH ECG OF 15-JAN-2017 02:04, NO SIGNIFICANT CHANGE WAS FOUND Confirmed by JOSE F RIVERA, RASHAD ([id number]) on 01/16/2017 8:40:40 AM Referred By: Elena LOPEZ Confirmed By:RASHAD KOHLER MD
--- NOTE | 2017-01-16 08:46 | EKG ---
Test Reason : Blood Pressure : / mmHG Vent. Rate : 087 BPM Atrial Rate : 087 BPM P-R Int : 158 ms QRS Dur : 088 ms QT Int : 328 ms P-R-T Axes : 069 054 046 degrees QTc Int : 394 ms NORMAL SINUS RHYTHM WITH SINUS ARRHYTHMIA NORMAL ECG WHEN COMPARED WITH ECG OF 15-JAN-2017 09:35, NO SIGNIFICANT CHANGE WAS FOUND Confirmed by JOSE F RIVERA, RASHAD ([id number]) on 01/16/2017 8:45:56 AM Referred By: Elena LOPEZ Confirmed By:RASHAD KOHLER MD
[2017-01-16] MEDS: CLOPIDOGREL BISULFATE 75 MG TABLET (FP) PO SCH (09:31)
[2017-01-16] MEDS: PANTOPRAZOLE 40 MG TABLET (FP) PO SCH (09:31)
[2017-01-16] MEDS: METOPROLOL TARTRATE 50 MG TABLET (FP) PO SCH (09:31)
[2017-01-16] MEDS: ASPIRIN COATED 81 MG TABLET.EC PO SCH (09:31)
[2017-01-16] MEDS: TAMSULOSIN HCL 0.4 MG CAP.ER.24H (FP) PO SCH (09:31)
[2017-01-16] MEDS ORDERED: METOPROLOL TARTRATE 25 MG TABLET (FP) PO STA (10:39)
[2017-01-16] MEDS ORDERED: METOPROLOL TARTRATE 50 MG TABLET (FP) PO SCH (10:40)
[2017-01-16] MEDS ORDERED: NITROGLYCERIN SUBLINGUAL 1/150 0.4 MG TAB SL PRN (10:42)
--- NOTE | 2017-01-16 15:55 | PN ---
Progress Note, Physician Chief Complaint: Patient had an episodes of chest pain this morning. He is currently chest pain free. No SOB or palpitation. History of Present Illness: 61 year-old man with a PMHx of HTN, NIDDM, HLD, Parkinson's disease, diverticulosis, lower GI bleed, anemia, renal calculi, and spinal stenosis s/p L3-L4, L4-L5 laminectomy admitted 01/15/2017 with chest tightness with associated SOB. Patient developed chest tightness with SOB after lifted a heavy box from one counter to another. His symptoms lasted about two hours resolved after receiving Aspirin. He had similar episode of chest pressure and SOB at the end of November 2016 after walking a distance of about a quarter mile. He did not seek medical attention at that time. He was found to have elevated troponin after admission. ECG did not show acute ST-T changes. He had recurrent chest pain while on IV heparin. - Current Medication List Current Medications: Active Medications Aspirin (Ecotrin -) 81 mg PO DAILY [facility] Last Admin: 01/16/17 09:31 Dose: 81 mg Atorvastatin Calcium (Lipitor -) 40 mg PO HS [facility] Last Admin: 01/15/17 21:46 Dose: 40 mg Carbidopa/Levodopa (Sinemet *Cr* 25/100 -) 1 combo PO TID [facility] Last Admin: 01/16/17 13:06 Dose: 1 combo Clopidogrel Bisulfate (Plavix -) 75 mg PO DAILY [facility] Last Admin: 01/16/17 09:31 Dose: 75 mg Heparin Sodium (Porcine) (Heparin -) 1,000 unit IVPUSH PRN PRN PRN Reason: Heparin Heparin Sodium (Porcine) (Heparin -) 5,000 unit IVPUSH PRN PRN PRN Reason: Heparin Last Admin: 01/15/17 11:14 Dose: 5,000 unit Heparin Sodium (Porcine) 25, (000 unit/ Sodium Chloride) 500 mls @ 20 mls/hr IV TITR [facility]; 1,000 UNIT/HR PRN Reason: Protocol Last Admin: 01/16/17 06:52 Dose: 700 unit/hr, 14 mls/hr Insulin Aspart (Novolog Vial Sliding Scale -) 1 vial SQ ACHS [facility] PRN Reason: Protocol Last Admin: 01/16/17 11:54 Dose: Not Given Metoprolol Tartrate (Lopressor -) 75 mg PO DAILY [facility] Nitroglycerin (Nitrostat -) 0.4 mg SL Q5M PRN PRN Reason: FOR CHEST PAIN Pantoprazole Sodium (Protonix -) 40 mg PO DAILY [facility] Last Admin: 01/16/17 09:31 Dose: 40 mg Tamsulosin HCl (Flomax -) 0.4 mg PO DAILY@0830 [facility] Last Admin: 01/16/17 09:31 Dose: 0.4 mg - Objective Vital Signs: Vital Signs Temperature 98.1 F 01/16/17 14:00 Pulse Rate 85 01/16/17 14:00 Respiratory Rate 20 01/16/17 14:00 Blood Pressure 128/83 01/16/17 14:00 O2 Sat by Pulse Oximetry (%) 97 01/16/17 09:00 Constitutional: Yes: Well Nourished, No Distress, Calm Eyes: Yes: WNL, Conjunctiva Clear, EOM Intact HENT: Yes: Atraumatic, Normocephalic Neck: Yes: Supple, Trachea Midline Cardiovascular: Yes: Regular Rate and Rhythm Respiratory: Yes: Regular, CTA Bilaterally Gastrointestinal: Yes: Normal Bowel Sounds, Soft ...Rectal Exam: Yes: Deferred Musculoskeletal: Yes: WNL Extremities: Yes: WNL Edema: No Peripheral Pulses WNL: Yes Labs: CBC, BMP 01/15/17 05:05 01/15/17 05:05 Assessment/Plan 61 year-old man with a PMHx of HTN, NIDDM, HLD, Parkinson's disease, diverticulosis, lower GI bleed, anemia, renal calculi, and spinal stenosis s/p L3-L4, L4-L5 laminectomy admitted 01/15/2017 with chest tightness with associated SOB. He was found to have elevated troponin after admission. ECG did not show acute ST-T changes. He had recurrent chest pain while on IV heparin. NSTEMI: The patient has multiple risk factors of CAD admitted with atypical angina with evidence of NSTEMI. Cardiac cath with possible PCI is scheduled for 01/18/2017 at [facility]. He will be transferred to [facility] at 9:30 am tomorrow. Please keep the patient NPO after midnight. Continue IV Heparin to keep aPTT at 50-70. Continue aspirin and atorvastatin. May increase metoprolol (Lopressor) to 50 mg BID for better heart rate control.
[2017-01-16] MEDS: ATORVASTATIN CA 40 MG TABLET (FP) PO SCH (22:19)
[2017-01-17] MEDS: INSULIN SLIDING SCALE (NOVOLOG) 1 VIAL SQ SCH (06:09)
[2017-01-17] MEDS: HEPARIN - 25,000 UNIT in SODIUM CHLORIDE 495 ML IV SCH ×2 (06:16→09:21)
[2017-01-17 06:41] LABS: MCH 29.5 pg (25.7-33.7); MCHC 33.3 g/dl (32.0-35.9); MEAN CELL VOLUME 88.6 fl (80-96); MEAN PLT VOLUME 8.5 fl (7.5-11.1); PLATELET COUNT 162 K/MM3 (134-434); RDW 14.7 % (11.9-15.9); WHITE BLOOD COUNT 6.9 K/mm3 (4.0-10.0)
[2017-01-17 07:10] LABS: ANION GAP 5 (8-16); CALCIUM 8.7 mg/dL (8.5-10.1); CO2 30 mmol/L (21-32); CREATININE 0.8 mg/dL (0.7-1.3); GLUCOSE,RANDOM 132 mg/dL (74-106); MAGNESIUM 2.1 mg/dL (1.8-2.4)
--- NOTE | 2017-01-17 08:15 | DS ---
Physical Exam: SUBJECTIVE: Patient seen and examined OBJECTIVE: Vital Signs Period Temp Pulse Resp BP Sys/Sol Pulse Ox Last 24 Hr 97.5 F-99.1 F 66-85 18-20 118-137/60-86 97-97 PHYSICAL EXAM GENERAL: The patient is awake, alert, and fully oriented, in no acute distress. LUNGS: Breath sounds equal, clear to auscultation bilaterally, no wheezes, no crackles, no accessory muscle use. HEART: Regular rate and rhythm, S1, S2 without murmur, rub or gallop. ABDOMEN: Soft, nontender, nondistended, normoactive bowel sounds, no guarding, no rebound EXTREMITIES: 2+ pulses, warm, well-perfused, no edema. NEUROLOGICAL: Cranial nerves II through XII grossly intact. Normal speech, gait not observed. LABS CBCD WBC 6.9 K/mm3 (4.0-10.0) 01/17/17 06:20 RBC 4.91 M/mm3 (4.00-5.60) 01/17/17 06:20 Hgb 14.5 GM/dL (11.7-16.9) 01/17/17 06:20 Hct 43.5 % (35.4-49) 01/17/17 06:20 MCV 88.6 fl (80-96) 01/17/17 06:20 MCHC 33.3 g/dl (32.0-35.9) 01/17/17 06:20 RDW 14.7 % (11.9-15.9) 01/17/17 06:20 Plt Count 162 K/MM3 (134-434) 01/17/17 06:20 MPV 8.5 fl (7.5-11.1) 01/17/17 06:20 CMP Sodium 138 mmol/L (136-145) 01/17/17 06:20 Potassium 4.1 mmol/L (3.5-5.1) 01/17/17 06:20 Chloride 103 mmol/L (98-107) 01/17/17 06:20 Carbon Dioxide 30 mmol/L (21-32) 01/17/17 06:20 Anion Gap 5 (8-16) L 01/17/17 06:20 BUN 13 mg/dL (7-18) 01/17/17 06:20 Creatinine 0.8 mg/dL (0.7-1.3) 01/17/17 06:20 Creat Clearance w eGFR > 60 (>60) 01/15/17 05:05 Calcium 8.7 mg/dL (8.5-10.1) 01/17/17 06:20 Total Bilirubin 0.7 mg/dL (0.2-1.0) D 01/15/17 05:05 AST 23 U/L (15-37) 01/15/17 05:05 ALT 41 U/L (12-78) D 01/15/17 05:05 Alkaline Phosphatase 121 U/L (45-117) H 01/15/17 05:05 Total Protein 7.0 g/dl (6.4-8.2) 01/15/17 05:05 Albumin 3.6 g/dl (3.4-5.0) 01/15/17 05:05 HOSPITAL COURSE: Date of Admission:01/15/17 Date of Discharge: 01/17/17 Pre hospital course 61 year-old male with a PMH significant for HTN, HLD, Parkinson's disease, NIDDM , diverticulosis, h/o lower GI bleed, anemia, renal calculi, and spinal stenosis s/p L3-L4, L4-L5 laminectomy. Presents with a complaint of chest tightness with associated SOB. Patient was in post office and lifted a heavy box from one counter to another, a distance of a few feet. He felt mid sternal chest pressure and became SOB. The symptoms lasted about two hours and have not recurred. Patient had one previous episode of chest pressure and SOB at the end of November after walking a distance of about a quarter mile. The patient's last stress test was in 2007 and was normal. He has not had a cardiac workup since then. Patient denies palpitations, PND, orthopnea, near syncope, lower extremity edema. He denies fever, sweats, chills. Subsequent hospital course NSTEMI Unstable angina --Troponins 0.03-->0.51-->0.81-->0.73 --episode of chest pain at rest last night relieved with nitro SL --tachycardic to 120s, increase metoprolol to 75mg BID --continue ASA, Plavix, atorvastatin, heparin drip, nitro PRN --transfer to [facility] for cardiac cath Hypertension --continue metoprolol Parkinson's Disease --continue carbidopa/levodopa NIDDM --Novolog sliding scale coverage h/o lower GI bleed Diverticulosis --continue protonix Renal calculi --no acute issues Anemia --h/h stable Lumbar spinal stenosis s/p laminectomy --no acute issues FEN Fluids: PO intake adequate Electrolytes: replete as indicated Nutrition: low sodium diabetic DVT prophylaxis: heparin drip Dispo: transfer to [facility] tomorrow for cath. Full code. Minutes to complete discharge: 35 Discharge Summary Reason For Visit: CHEST PAIN Current Active Problems Chest pain (Acute) Condition: Stable - Instructions Referrals: Evelio Dennis MD [Primary Care Provider] - - Home Medications Comprehensive Discharge Medication List: Ambulatory Orders Alfuzosin HCl [Uroxatral] 10 mg PO DAILY 01/14/17 Aspirin Coated [Ecotrin -] 81 mg PO DAILY tablet.ec 01/17/17 Atorvastatin Ca [Lipitor] 40 mg PO HS tablet 01/17/17 Carbidopa/Levodopa *Cr* 25/100 [Sinemet *Cr* 25/100 -] 1 combo PO TID tablet.er 01/17/17 Clopidogrel Bisulfate [Plavix -] 75 mg PO DAILY tablet 01/17/17 Heparin - 1,000 unit IVPUSH PRN PRN vial 01/17/17 Heparin - 5,000 unit IVPUSH PRN PRN vial 01/17/17 Heparin - 25,000 unit IV TITR vial 01/17/17 Insulin Sliding Scale [Novolog Vial Sliding Scale -] 1 vial SQ ACHS units 01/17 Metoprolol Tartrate [Lopressor -] 75 mg PO DAILY tablet 01/17/17 Nitroglycerin Sublingual [Nitrostat -] 0.4 mg SL Q5M PRN tab 01/17/17 Pantoprazole Sodium [Protonix -] 40 mg PO DAILY tablet.ec 01/17/17 Tamsulosin HCl [Flomax -] 0.4 mg PO DAILY@0830 cap.er.24h 01/17/17 This patient is new to me today: No Emergency Visit: Yes ED Registration Date: 01/15/17 Care time: The patient presented to the Emergency Department on the above date and was hospitalized for further evaluation of their emergent condition. Critical Care patient: No - Discharge Referral Referred to [facility] Med [facility] No
[2017-01-17] MEDS: TAMSULOSIN HCL 0.4 MG CAP.ER.24H (FP) PO SCH (09:20)
[2017-01-17] MEDS: CLOPIDOGREL BISULFATE 75 MG TABLET (FP) PO SCH (09:21)
[2017-01-17] MEDS: PANTOPRAZOLE 40 MG TABLET (FP) PO SCH (09:21)
[2017-01-17] MEDS: ASPIRIN COATED 81 MG TABLET.EC PO SCH (09:21)
--- NOTE | 2017-01-17 13:29 | EKG ---
Test Reason : Blood Pressure : / mmHG Vent. Rate : 074 BPM Atrial Rate : 074 BPM P-R Int : 146 ms QRS Dur : 086 ms QT Int : 350 ms P-R-T Axes : 064 056 045 degrees QTc Int : 388 ms NORMAL SINUS RHYTHM NORMAL ECG WHEN COMPARED WITH ECG OF 15-JAN-2017 12:47, NO SIGNIFICANT CHANGE WAS FOUND Confirmed by DRAKE SCHULTZ MD ([id number]) on 01/17/2017 1:29:45 PM Referred By: Elena LOPEZ Confirmed By:DRAKE SCHULTZ MD
--- NOTE | 2017-01-17 13:31 | EKG ---
Test Reason : Blood Pressure : / mmHG Vent. Rate : 089 BPM Atrial Rate : 089 BPM P-R Int : 154 ms QRS Dur : 090 ms QT Int : 346 ms P-R-T Axes : 077 055 051 degrees QTc Int : 420 ms NORMAL SINUS RHYTHM NORMAL ECG WHEN COMPARED WITH ECG OF 14-JAN-2017 13:49, VENT. RATE HAS DECREASED Confirmed by DRAKE SCHULTZ MD ([id number]) on 01/17/2017 1:30:52 PM Referred By: Confirmed By:DRAKE SCHULTZ MD
[2017-01-17 14:11] VITALS: BP 146/90; PULSE 76; TEMP 98.5
== END 2017-01-17 09:58 | disposition short-term general hospital (02) | DRG 282 ==
LOC: JER 13:40 → JERBED 18:06 → J4W 19:15 → OBSVTOIN 01-15 00:36 → J4W 01-15 20:48
PROVIDERS: ADMIT Internal Medicine; ATTEND Nurse Practitioner Acute Care
DX: I21.4 Non-ST elevation (NSTEMI) myocardial infarction (principal); R07.89 Other chest pain; M54.5 Low back pain; I10 Essential (primary) hypertension; E11.9 Type 2 diabetes mellitus without complications; D64.9 Anemia, unspecified; K57.90 Diverticulosis of intestine, part unspecified, without perforation or abscess without bleeding; N40.0 Benign prostatic hyperplasia without lower urinary tract symptoms; E78.00 Pure hypercholesterolemia, unspecified; G20 Parkinson's disease; M48.061 Spinal stenosis, lumbar region without neurogenic claudication; I20.0 Unstable angina; R00.0 Tachycardia, unspecified; Z87.442 Personal history of urinary calculi
CPT/HCPCS: 36415; 71010-TC; 80048; 80053; 82272; 82550; 82553; 83036; 83735; 84443; 84484; 85025; 85027; 85730; 93005; 93010; 99285-25; G0378; J1644